=== PATIENT | male | born 1970 | race Caucasian/White ===

== ENCOUNTER 2018-05-23 09:53 | Emergency (ER) | payer SELFPAY ==
[2018-05-23 10:04] VITALS: BP 140/90
--- NOTE | 2018-05-23 10:21 | UC ---
Back Pain HPI - HPI Summary HPI Summary: Patient is 47 year old gentleman , past medical history significant for back injury 20 years ago and since then has been having intermittent back pains. He reports that he went to see the spine surgeon in [facility] 1 week ago where he had an episode where he sneezed and his back pain got really worse. Was seen in the urgent care and given muscle relaxant and Medrol Dosepak as per patient. He got the x-ray and MRI of the spine surgeons clinic but the reports are not available yet. He reports that he was given intramuscular corticosteroid injection for a similar episode in the past with significant improvement in his pain. He denies any radiation or radicular symptoms and reports that the pain is localized in his lower back in the lumbar area. Sitting for a long time makes it worse. Pain is worse with any movement whether it is bending on extension. Denies any radicular symptoms, numbness , tingling , incontinence, saddle anesthesia , motor or sensory disturbance. Denies any fever, chills, cough chest pain or shortness of breath . No diaphoresis. Denies any abdominal pain , nausea or vomiting , diarrhea or constipation. Treatment done so far has not provided him with any relief - History of Current Complaint Chief Complaint: UCBackPain Stated Complaint: BACK PAIN Time Seen by Provider: 05/23/18 10:19 Hx Obtained From: Patient Pain Intensity: 9 - Allergies/Home Medications Allergies/Adverse Reactions: Allergies Allergy/AdvReac Type Severity Reaction Status Date / Time No Known Allergies Allergy Verified 05/23/18 10:04 PMH/Surg Hx/FS Hx/Imm Hx - Additional Past Medical History Additional PMH: ignificant as of low back injury and Lyme disease in the past Previously Healthy: Yes Other Endocrine History: negative Other Cardiovascular History: negative Other Respiratory History: negative Other GI/ History: negative Other Neurological History: negative Other Psychological History: negative Other Cancer History: negative Other History Of: Negative For: HIV, Hepatitis B, Hepatitis C, Anticoagulant Therapy - Surgical History Surgical History: Yes Surgery Procedure, Year, and Place: appy; wisdom teeth - Family History Known Family History: Negative: Cardiac Disease, Hypertension, Diabetes - Social History Alcohol Use: Weekly Alcohol Amount: beer Substance Use Type: None Substance Use Comment - Amount & Last Used: seldom Smoking Status (MU): Light Every Day Tobacco Smoker Type: Cigarettes Have You Smoked in the Last Year: No When Did the Patient Quit Smoking/Using Tobacco: 2014 Review of Systems Constitutional: Negative Skin: Negative Eyes: Negative ENT: Negative Respiratory: Negative Cardiovascular: Negative Gastrointestinal: Negative Genitourinary: Negative Motor: Negative Neurovascular: Negative Musculoskeletal: Arthralgia, Decreased ROM, Other: - Low back pain Neurological: Negative Psychological: Negative Is Patient Immunocompromised?: No All Other Systems Reviewed And Are Negative: Yes Physical Exam - Summary Physical Exam Summary: Physical Exam: Const: Pain distress noted .patient is not in any comfortable position during the visit .Alert and oriented x 3. Musculo: Walks with a normal gait. Head/Face: Atraumatic, normocephalic on inspection. Eyes: EOMI and PERRLA in both eyes. Conjunctivae clear. No discharge noted ENT: Hearing normal, TM normal appearing bilaterally . Respiratory: Respirations are unlabored. Lungs clear to auscultation bilaterally Extremities: Peripheral circulation is grossly normal. Pulses 2+ Abdomen : Soft non tender Skin: No lesions or rash located on the upper extremities or on the lower extremities. Neuro: Cranial nerves II to XII intact, motor and sensory intact. DTR Intact bilaterally. Mood is normal. Affect is normal. Spine: No loss of the normal lumbar lordosis or step-off. No midline tenderness noted, there is tenderness to palpation in bilateral paraspinal area in the lumbar area region. There is no tenderness of the costovertebral angle bilaterally. Stability: No obvious instability. Strength: Flexion, extension, left rotation, left lateral bending, right lateral bending and right rotation strength is intact. ROM: Full range of motion but painful in all planes Special Tests: Straight leg raise is negative bilaterally. Skin: No scars, rashes, lesions or ecchymosis. Neuro: Sensation intact to light touch. Motor and sensory intact. Reflexes: Left DTR's are intact. Right DTR's are intact. Toes downgoing. Coordination normal. Distal pulses intact. Triage Information Reviewed: Yes Vital Signs: Initial Vital Signs Temp 97.7 F 05/23/18 09:59 Pulse 74 05/23/18 09:59 Resp 18 05/23/18 09:59 BP 140/90 05/23/18 09:59 Pulse Ox 99 05/23/18 09:59 Vital Signs Reviewed: Yes Back Pain Course/Dx - Course Course Of Treatment: During the visit today, we discussed the findings and further plan. I we discussed the risks and benefits of corticosteroid and he opted to proceed with intramuscular injection of 80 mg Depo-Medrol since this has helped him in the past. Will prescribe the pain medication to the pharmacy . He will follow up with a spine surgeon in [facility] in regards to the reports of the x-ray and MRI and further management plan. Patient expressed understanding . - Differential Dx/Diagnosis Provider Diagnoses: low back pain Discharge - Sign-Out/Discharge Documenting (check all that apply): Patient Departure All imaging exams completed and their final reports reviewed: No Studies - Discharge Plan Condition: Stable Disposition: HOME Prescriptions: Hydrocodone/Acetaminophen [Vicodin 5-300 mg Tablet] 1 each PO BID PRN 7 Days # 14 tablet MDD 2 tab PRN Reason: Pain Patient Education Materials: Low Back Strain (ED) Referrals: Nestor Rose MD [Primary Care Provider] - 2 Days Additional Instructions: Please start taking the medication as prescribed to the pharmacy . Follow up with your primary care doctor in 2 days. Please follow up with your spine surgeon in [facility] the follow-up on your imaging and further management and plan. Patients blood pressure slightly high in Urgent care today , plan follow up with PCP for better control Return to Urgent care / ER if symptoms get worse. - Billing Disposition and Condition Condition: STABLE Disposition: Home
[2018-05-23] MEDS ORDERED: methylPREDNISolone ACETATE 80* 80 MG/ML 1 ML VIAL IM ONE (10:34)
== END 2018-05-23 11:05 | disposition home or self-care (01) ==
LOC: UCEAST 09:53
DX: M54.5 Low back pain (principal); Z87.891 Personal history of nicotine dependence
CPT/HCPCS: 96372; 99212; G0463; J1040